=== PATIENT | male | born 1995 | race Two or more races ===

== ENCOUNTER 2018-07-29 16:53 | Emergency (ER) | payer MEDICAID ==
[~2018-07-29] VITALS: Ht 167.6 cm; Wt 56.7 kg
[2018-07-29 17:20] VITALS: BP 121/81
== END 2018-07-29 20:15 | disposition home or self-care (01) ==
LOC: ER 16:54
DX: M25.532 Pain in left wrist (principal); F17.210 Nicotine dependence, cigarettes, uncomplicated; F12.10 Cannabis abuse, uncomplicated; W19.XXXA Unspecified fall, initial encounter; Y93.44 Activity, trampolining; Y92.89 Other specified places as the place of occurrence of the external cause; Y99.8 Other external cause status
CPT/HCPCS: 29125; 73130

== ENCOUNTER 2018-11-27 20:09 | Emergency (ER) | payer MEDICAID ==
[~2018-11-27] VITALS: Ht 167.6 cm; Wt 54.4 kg
[2018-11-27] MEDS ORDERED: ACETAMINOPHEN/CODEINE#3 (300/30mg) TAB PO ONE (21:30)
[2018-11-27] MEDS ORDERED: methylPREDNISolone SOD SUCC 125 MG/2 ML VL IM ONE (21:30)
[2018-11-27] MEDS ORDERED: cefTRIAXone SOD 1,000 MG VL IM ONE (21:30)
[2018-11-27] MEDS ORDERED: BENZOCAINE (DENTAL) 20 % SPRAY 60ML MT ONE (21:45)
[2018-11-27 22:46] VITALS: BP 122/87
== END 2018-11-27 22:09 | disposition home or self-care (01) ==
LOC: ER 20:10
DX: S02.5XXA Fracture of tooth (traumatic), initial encounter for closed fracture (principal); F17.210 Nicotine dependence, cigarettes, uncomplicated; F12.10 Cannabis abuse, uncomplicated; W22.8XXA Striking against or struck by other objects, initial encounter; Y93.89 Activity, other specified; Y92.89 Other specified places as the place of occurrence of the external cause; Y99.8 Other external cause status
CPT/HCPCS: 96372; 99283; J0696; J2930

== ENCOUNTER 2019-09-24 09:30 | Emergency (ER) | payer MEDICAID ==
[~2019-09-24] VITALS: Ht 162.6 cm; Wt 54.4 kg
[2019-09-24 10:18] VITALS: BP 110/68
[2019-09-24] MEDS ORDERED: IBUPROFEN 800 MG TAB PO ONE (11:30)
== END 2019-09-24 11:42 | disposition home or self-care (01) ==
LOC: ER 09:30
DX: H66.93 Otitis media, unspecified, bilateral (principal); F17.210 Nicotine dependence, cigarettes, uncomplicated; Z88.8 Allergy status to other drugs, medicaments and biological substances; Z91.018 Allergy to other foods

== ENCOUNTER 2019-09-24 22:11 | Emergency (ER) | payer MEDICAID ==
[~2019-09-24] VITALS: Ht 162.6 cm; Wt 54.4 kg
[2019-09-24 22:21] VITALS: BP 111/63
[2019-09-24 22:59] LABS: Basophils # (auto) 0 uL; Basophils % (auto) 0.2 % (0.0-2.0); Eosinophils # (auto) 0.3 uL; Eosinophils % (auto) 1.8 % (0.0-7.0); Hemoglobin 15.2 g/dL (13.5-17.5); Lymphocytes # (auto) 2.1 uL; Lymphocytes % (auto) 13.4 % (10.0-50.0); Mean Corpuscular Hemoglobin 30.7 pg (28.0-32.0); Mean Corpuscular Hgb Conc. 33.7 g/dL (32.0-36.0); Monocytes # (auto) 1.6 uL; Monocytes % (auto) 10.1 % (0.0-12.0); Neutrophils # (auto) 11.6 uL; Neutrophils % (auto) 74.5 % (37.0-80.0); Platelet Count (auto) 253 10^3/uL (140-450); Red Blood Cells 4.94 10^6/uL (4.5-5.90); Red Cell Distribution Width 13.3 % (11.8-14.3); White Blood Cell 15.5 10^3/uL (4.4-10.8)
[2019-09-24 23:19] LABS: Albumin 4.1 g/dL (3.4-5.0); Anion Gap 3 (5-15); Blood Urea Nitrogen 11 mg/dL (7-18); Calcium 8.7 mg/dL (8.5-10.1); Carbon Dioxide 32 mmol/L (21-32); Chloride 105 mmol/L (98-107); Glucose 90 mg/dL (74-106); Potassium 3.7 mmol/L (3.5-5.1); Sodium 140 mmol/L (136-145)
[2019-09-24 23:21] LABS: Alanine Aminotransferase 18 U/L (16-61); Aspartate Aminotransferase 17 U/L (15-37); BUN/Creatinine Ratio 11.2; GFR African American 124 mL/min; GFR Non-African American 103 mL/min
[2019-09-24 23:26] LABS: Alkaline Phosphatase 56 U/L (45-117); Bilirubin, Total 0.6 mg/dL (0.2-1.0); Total Protein 8.1 g/dL (6.4-8.2)
== END 2019-09-25 03:23 | disposition left against medical advice (07) ==
LOC: EDBD 22:11 → ER 22:11
DX: R10.31 Right lower quadrant pain (principal); R11.2 Nausea with vomiting, unspecified; Z53.21 Procedure and treatment not carried out due to patient leaving prior to being seen by health care provider
CPT/HCPCS: 36415; 74176; 80053; 84484; 85025

== ENCOUNTER 2020-10-19 23:46 | Emergency (ER) | payer MEDICAID ==
[~2020-10-19] VITALS: Ht 167.6 cm; Wt 54.4 kg
[2020-10-20 00:05] VITALS: BP 141/92
== END 2020-10-20 02:17 | disposition home or self-care (01) ==
LOC: ER 23:48
DX: J06.9 Acute upper respiratory infection, unspecified (principal); Z20.822 Contact with and (suspected) exposure to COVID-19
CPT/HCPCS: 36415; 71045; 87426

== ENCOUNTER 2021-01-16 21:03 | Emergency (ER) | payer MEDICAID ==
[~2021-01-16] VITALS: Ht 170.2 cm; Wt 54.4 kg
[2021-01-16] MEDS ORDERED: PANTOPRAZOLE 40 MG/10 ML VIAL INJ IV STA (21:05)
[2021-01-16] MEDS ORDERED: MORPHINE SULF INJ 2 MG/ML SYRINGE 1ML IV ONE (21:15)
[2021-01-16] MEDS ORDERED: PROCHLORPERAZINE EDISYLATE 5 MG/ML 2ML VIAL IV ONE (21:15)
[2021-01-16] MEDS ORDERED: SODIUM CHLORIDE 0.9% 1,000 ML IVB ONE (21:15)
[2021-01-16 21:27] VITALS: BP 138/78
[2021-01-16 21:30] LABS: Basophils # (auto) 0.1 10 ^3/uL (0-0.2); Basophils % (auto) 0.6 % (0.0-2.0); Eosinophils # (auto) 0.1 10 ^3/uL (0-0.8); Eosinophils % (auto) 0.8 % (0.0-7.0); Hematocrit 44.9 % (41.0-53.0); Hemoglobin 15.8 g/dL (13.5-17.5); Lymphocytes # (auto) 1.8 10 ^3/uL (0.4-5.4); Lymphocytes % (auto) 10.7 % (10.0-50.0); Mean Corpuscular Hgb Conc. 35.2 g/dL (32.0-36.0); Mean Corpuscular Volume 90.9 fL (80.0-100.0); Monocytes # (auto) 1.6 10 ^3/uL (0-1.3); Monocytes % (auto) 9.6 % (0.0-12.0); Neutrophils # (auto) 12.9 10 ^3/uL (1.6-8.6); Neutrophils % (auto) 78.3 % (37.0-80.0); Platelet Count (auto) 228 10^3/uL (140-450); Red Blood Cells 4.94 10^6/uL (4.5-5.90); Red Cell Distribution Width 13.4 % (11.8-14.3); White Blood Cell 16.4 10^3/uL (4.4-10.8)
[2021-01-16 21:49] LABS: Albumin 4.6 g/dL (3.4-5.0); BUN/Creatinine Ratio 11.4; Calcium 9.1 mg/dL (8.5-10.1); Potassium 3.3 mmol/L (3.5-5.1)
[2021-01-16 21:57] LABS: Bilirubin, Total 1.5 mg/dL (0.2-1.0); Total Protein 8.4 g/dL (6.4-8.2)
== END 2021-01-16 22:53 | disposition home or self-care (01) ==
LOC: EDBD 21:03 → EDSEX 21:03 → ER 21:08
DX: F12.188 Cannabis abuse with other cannabis-induced disorder (principal); F14.10 Cocaine abuse, uncomplicated; J45.909 Unspecified asthma, uncomplicated
CPT/HCPCS: 36415; 80053; 83690; 85025; 93005; 96361; 96374; 96375; 99284; C9113; J0780; J2270; J7030